=== PATIENT | female | born 1995 | race African-American/Black ===

== ENCOUNTER 2018-09-21 19:18 | Day surgery (SDC) | payer MEDICAID ==
[2018-09-21 19:41] VITALS: BP 130/79; TEMP 98.5; BMI 34.5
[2018-09-21] MEDS ORDERED: Acetaminophen 500 MG TAB PO SCH (20:00)
--- NOTE | 2018-09-21 20:07 | PDOC.LDHP ---
Labor and Delivery H&P Chief complaint: other (Back pain) HPI: 23 yo @ 34.6 presents for low back pain that she woke up with at noon today. Pain has persisted. Unable to describe quality of pain, but reports that it does not wax and wane. Located primarily near rt SI. Denies LOF, vaginal bleeding and vaginal discharge. Reports po movement. Denies CVA tenderness, dysuria, urinary frequency and urinary urgency. Otherwise no complaints. Pt receives PNC in [place], but recently moved to the area. ROS: Gen: no feve chills HEENT: denies headache CV: denies CP Resp: denies SOB Abd: denies NVDC, denies abd pain : see HPI OB: See HPI Current gestational age (weeks): 34 (34.6) Dating criteria: last menstrual period Grav: 1 Para: 0 Current complications: gestational diabetes (diet controlled) Abnormal US findings: No Current medications: pre- vitamins Previous surgical history: none Allergies/Adverse Reactions: Allergies Allergy/AdvReac Type Severity Reaction Status Date / Time No Known Allergies Allergy Verified 09/21/18 19:38 Social history: none - Physical Exam Vital signs reviewed and normal: yes General: NAD, resting Heart: RRR Lungs: CTAB Abdomen: NTTP Extremeties: trace edema FHT: category 1 (baseline 120s, reactive), variability present [place] contractions every: None - OB Labs Blood type: unknown RH: unknown Antibody Screen: unknown HIV: unknown RPR: unknown HEPSAg: unknown 1 hour GCT: unknown GBS: unknown Urine drug screen: not done - Plan -: 1) SI pain vs round ligament pain vs romina shah - will give PO tylenol and re-assess given that symptoms are constant and unchanged likely MSK pain - EFM show no ctx and reactive strip Dispo: stable, no ctx currently. Will give PO tylenol and reassess pain after tylenol. Consider MM relaxer if no response to tylenol. Addendum - Attending - Attending Attestation Date/Time: 09/21/182023 I personally evaluated the patient and discussed the management with Dr. Mendoza. I agree with the History, Examination, Assessment and Plan documented above with any addition or exceptions noted below.
--- NOTE | 2018-09-21 20:50 | PDOC.EVN ---
Event Note - Event Note Event Note: Pt reports she is "feeling better." Still has no contractions on external monitors. VSS. FHTs bl 120s pos accels mod variability/reactive. Will plan for DC to home with tylenol prn for MSK pain. Counsleed extensively on labor precautions including frequent contractions lasting >1hr, LOF, vaginal bleeding and decreased FM. Also discussed romina shah ctx, round liament pain and MSK pain of . Will dc to home. Pt to f/u with Primary OB next week.
== END 2018-09-21 21:15 | disposition home or self-care (01) ==
LOC: L&D/OP 19:18
PROVIDERS: ATTEND Obstetrics & Gynecology
DX: O99.89 Other specified diseases and conditions complicating pregnancy, childbirth and the puerperium (principal); M54.5 Low back pain; O24.410 Gestational diabetes mellitus in pregnancy, diet controlled; Z3A.34 34 weeks gestation of pregnancy; Z79.899 Other long term (current) drug therapy
CPT/HCPCS: 99283